=== PATIENT | male | born 2000 | race Caucasian/White ===

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

== ENCOUNTER → 2019-03-26 | Outpatient (CLI) | payer OTHER ==
[~2019-03-26] MED LIST changes: +ZANT150T40 PO; -ZANTTAB PO
--- NOTE | 2019-03-26 18:10 | REP ---
HISTORY: Acute shoulder pain. No trauma. COMPARISON: No priors. FINDINGS: Three views of the shoulder were performed. The acromioclavicular and glenohumeral relationships are within normal limits. There is no acute fracture or destructive osseous lesion. Electronically Signed by Papi Weinberg DO 03/29/2019 04:11 P
== END ==
LOC: M LRY 12:01
PROVIDERS: ATTEND Nurse Practitioner Family
DX: M25.512 Pain in left shoulder (principal)

== ENCOUNTER → 2019-05-29 | Outpatient (REF) | payer OTHER ==
[~2019-05-29] MED LIST changes: +FAMO40TA3 PO; -LAMO200T2 PO; +LAMO200T3 PO; +ROBA750T4 PO
[2019-05-29 20:14] LABS: APPEARANCE, URINE CLEAR (CLEAR); BACTERIA, URINE AUTO NEGATIVE (NEGATIVE); BILIRUBIN, URINE AUTO NEGATIVE (NEGATIVE); BLOOD, URINE BLOOD 3+ (NEGATIVE); COLOR, URINE YELLOW (YELLOW); GLUCOSE, URINE (UA) AUTO NEGATIVE (NEGATIVE); KETONE, URINE AUTO NEGATIVE (NEGATIVE); LEUKOCYTE ESTERASE, URINE AUTO NEGATIVE (NEGATIVE); MUCUS, URINE SMALL (NEGATIVE); NITRITE, URINE AUTO NEGATIVE (NEGATIVE); PROTEIN, URINE AUTO 1+ mg/dL (NEGATIVE); RBC, URINE AUTO 58 /HPF (0-3); SPECIFIC GRAVITY URINE AUTO 1.025 (1.002-1.035); SQUAMOUS EPITHELIAL CELL UR AU 0 /HPF (0-6); UROBILINOGEN, URINE AUTO 0.2 mg/dL (0.0-2.0); WBC, URINE AUTO 0 /HPF (0-3)
== END ==
LOC: M LAB REF 13:50
PROVIDERS: ATTEND Nurse Practitioner Family
DX: R30.0 Dysuria (principal)

== ENCOUNTER 2019-05-30 02:05 | Emergency (ER) | payer OTHER ==
[~2019-05-30] VITALS: Ht 182.9 cm; Wt 107.3 kg
[~2019-05-30 02:05] MED LIST changes: -FAMO40TA3 PO; -ROBA750T4 PO
[2019-05-30 02:06] VITALS: BP 158/69
[2019-05-30] MEDS ORDERED: FAMO40TA3 PO (02:11)
[2019-05-30] MEDS ORDERED: METHOCARBAMOL 1,000 MG/10 ML VIAL (J2800) IM ONE (05:00)
[2019-05-30] MEDS ORDERED: ROBA750T4 PO (05:05)
== END 2019-05-30 05:31 | disposition home or self-care (01) ==
LOC: M ED 02:05
DX: S39.012A Strain of muscle, fascia and tendon of lower back, initial encounter (principal); X50.3XXA Overexertion from repetitive movements, initial encounter; Y92.9 Unspecified place or not applicable; Y93.29 Activity, other involving ice and snow; Y99.9 Unspecified external cause status; K21.9 Gastro-esophageal reflux disease without esophagitis; F41.9 Anxiety disorder, unspecified; F32.9 Major depressive disorder, single episode, unspecified; Z79.899 Other long term (current) drug therapy
CPT/HCPCS: 81001; 96372; 99282; J2800

== ENCOUNTER → 2019-06-01 | Outpatient (REF) | payer OTHER ==
[~2019-06-01] MED LIST changes: +FAMO40TA3 PO; +ROBA750T4 PO
[2019-06-01 12:10] LABS: APPEARANCE, URINE TURBID (CLEAR); BACTERIA, URINE AUTO NEGATIVE (NEGATIVE); BILIRUBIN, URINE AUTO 2+ (NEGATIVE); BLOOD, URINE BLOOD 2+ (NEGATIVE); GLUCOSE, URINE (UA) AUTO NEGATIVE (NEGATIVE); KETONE, URINE AUTO TRACE mg/dL (NEGATIVE); LEUKOCYTE ESTERASE, URINE AUTO NEGATIVE (NEGATIVE); NITRITE, URINE AUTO NEGATIVE (NEGATIVE); PROTEIN, URINE AUTO 1+ mg/dL (NEGATIVE); RBC, URINE AUTO 0 /HPF (0-3); SQUAMOUS EPITHELIAL CELL UR AU 0 /HPF (0-6); UROBILINOGEN, URINE AUTO 0.2 mg/dL (0.0-2.0); WBC, URINE AUTO 0 /HPF (0-3)
[2019-06-01 12:14] LABS: COLOR, URINE YELLOW (YELLOW)
== END ==
LOC: M SFHCLERA 08:39
PROVIDERS: ATTEND Family Medicine
DX: R10.32 Left lower quadrant pain (principal)

== ENCOUNTER → 2019-06-08 | Outpatient (CLI) | payer OTHER ==
--- NOTE | 2019-06-08 13:03 | REP ---
Limited pelvic bladder sonography: History: Groin pain on the left. Findings: Visualized bladder mahoney are smooth and normal. No bladder mass lesion is seen. Emptying ureteral jets are confirmed from both ureters on color Doppler interrogation of the bladder lumen. No extra vesicle lesion is seen. Pre void bladder volume is calculated at 529 mL. Postvoid bladder residual is only 5 mL, 0.9%. Impression: Normal limited pelvic bladder sonography. Electronically Signed by Janusz Dominguez MD 06/08/2019 03:32 P
== END ==
LOC: M RAD 10:08
PROVIDERS: ATTEND Family Medicine
DX: R10.32 Left lower quadrant pain (principal)

== ENCOUNTER → 2020-10-25 | Outpatient (REF) | payer OTHER ==
[~2020-10-25] MED LIST changes: -ESCI20TA PO; +ESCI20TA16 PO; +PANT40TA29 PO; -PANT40TA3 PO
== END ==
LOC: M SFHCLERA 11:04
PROVIDERS: ATTEND Nurse Practitioner Family
DX: J02.9 Acute pharyngitis, unspecified (principal)

== ENCOUNTER 2022-07-30 10:38 | Emergency (ER) | payer OTHER ==
[~2022-07-30] VITALS: Ht 182.9 cm; Wt 121.3 kg
[2022-07-30] MEDS ORDERED: LOSA25TA13 PO (10:51)
[2022-07-30] MEDS ORDERED: LORA-674 PO (10:51)
[2022-07-30] MEDS ORDERED: OMEP40CA5 PO (10:51)
[2022-07-30] MEDS ORDERED: ACETAMINOPHEN 500 MG TAB PO ONE (12:35)
[2022-07-30 14:26] VITALS: BP 138/92
== END 2022-07-30 14:30 | disposition home or self-care (01) ==
LOC: M ED 10:38
DX: Z04.1 Encounter for examination and observation following transport accident (principal); M25.511 Pain in right shoulder; J45.909 Unspecified asthma, uncomplicated; Z79.899 Other long term (current) drug therapy

== ENCOUNTER → 2022-08-20 | Outpatient (RCR) | payer OTHER ==
[~2022-08-20] MED LIST changes: -DULE100A IN; +LORA-674 PO; +LOSA25TA13 PO; +MOME13HF8 IN; +MONT-5 PO; +OMEP40CA5 PO; -SING10TA32 PO
== END ==
LOC: M PT 13:07
PROVIDERS: ATTEND Orthopaedic Surgery
DX: M25.511 Pain in right shoulder (principal)

== ENCOUNTER 2022-09-17 09:28 | Outpatient (RCR) | payer OTHER | END 2022-09-20 | LOC: M PT 09:28 | PROVIDERS: ATTEND Orthopaedic Surgery | DX: M25.511 Pain in right shoulder (principal) ==

== ENCOUNTER 2022-10-01 09:32 | Outpatient (RCR) | payer OTHER | END 2022-10-20 | LOC: M PT 09:32 | PROVIDERS: ATTEND Orthopaedic Surgery | DX: M25.511 Pain in right shoulder (principal) ==

== ENCOUNTER → 2022-10-21 | Outpatient (CLI) | payer OTHER | LOC: M RAD 07:16 | PROVIDERS: ATTEND Orthopaedic Surgery | DX: M25.511 Pain in right shoulder (principal); M77.8 Other enthesopathies, not elsewhere classified ==

== ENCOUNTER 2022-10-30 12:24 | Outpatient (RCR) | payer OTHER | END 2022-11-20 | LOC: M PT 12:24 | PROVIDERS: ATTEND Orthopaedic Surgery | DX: M25.511 Pain in right shoulder (principal) ==

== ENCOUNTER → 2023-02-18 | Outpatient (REF) | payer OTHER | LOC: M SFHCLERA 16:59 | PROVIDERS: ATTEND Family Medicine | DX: R05.9 Cough, unspecified (principal) ==

== ENCOUNTER 2023-04-19 19:42 | Emergency (ER) | payer OTHER ==
[~2023-04-19] VITALS: Ht 182.9 cm; Wt 119.5 kg
[2023-04-19 19:42] VITALS: BP 134/81; TEMP 98.5; O2SAT 98
[~2023-04-19 19:42] MED LIST changes: +LORA-1041 PO; -LORA-674 PO
== END 2023-04-19 21:44 | disposition home or self-care (01) ==
LOC: M ED 19:42
DX: H92.01 Otalgia, right ear (principal); I10 Essential (primary) hypertension; G43.909 Migraine, unspecified, not intractable, without status migrainosus; J45.909 Unspecified asthma, uncomplicated; Z88.1 Allergy status to other antibiotic agents; Z79.811 Long term (current) use of aromatase inhibitors; Z79.83 Long term (current) use of bisphosphonates; Z79.899 Other long term (current) drug therapy

== ENCOUNTER → 2023-07-08 | Outpatient (REF) | LOC: M RAD 13:22 | PROVIDERS: ATTEND Internal Medicine | DX: M25.511 Pain in right shoulder (principal); M54.6 Pain in thoracic spine ==

== ENCOUNTER → 2024-03-02 | Outpatient (CLI) | payer OTHER ==
[2024-03-02 18:09] LABS: BASO # 0.1 10^3/uL (0.0-0.2); BASO % 0.7 % (0.0-1.0); EOS # 0.1 10^3/uL (0.0-0.5); EOS % 1.1 % (0.0-3.0); HEMATOCRIT 49.2 % (42.0-52.0); HEMOGLOBIN 17.3 g/dl (13.5-17.5); LYMPH # 2.9 10^3/uL (1.5-5.0); LYMPH % 28.2 % (24.0-44.0); MEAN CORPUSCULAR HEMOGLOBIN 30.3 pg (27.0-33.0); MEAN CORPUSCULAR HGB CONC 35.2 g/dl (32.0-36.5); MEAN CORPUSCULAR VOLUME 86.2 fl (80.0-96.0); MONO # 0.9 10^3/uL (0.0-0.8); MONO % 8.7 % (2.0-8.0); NEUTROPHILS # 6.1 10^3/uL (1.5-8.5); NEUTROPHILS % 60.8 % (36.0-66.0); PLATELET COUNT, AUTOMATED 296 10^3/uL (150-450); RED BLOOD COUNT 5.71 10^6/uL (4.30-6.10); WHITE BLOOD COUNT 10.1 10^3/uL (4.0-10.0)
[2024-03-02 18:27] LABS: TOTAL PROTEIN,RANDOM URINE 17.4 MG/DL (0.0-14.0)
[2024-03-02 18:28] LABS: ALBUMIN 4.4 G/DL (3.2-5.2); BLOOD UREA NITROGEN 10 MG/DL (9-23); CARBON DIOXIDE LEVEL 31 MMOL/L (20-31); CHLORIDE LEVEL 104 MMOL/L (98-107); CREATININE FOR GFR 0.84 MG/DL (0.70-1.30); GLOMERULAR FILTRATION RATE > 60.0 (>60); GLUCOSE, FASTING 87 MG/DL (60-100); POTASSIUM SERUM 4.6 MMOL/L (3.5-5.1); SODIUM LEVEL 140 MMOL/L (136-145)
[2024-03-02 18:32] LABS: CREATININE, URINE 49.5 MG/DL
[2024-03-02 18:33] LABS: MAU/CREAT RATIO 191.9 MCG/MG (0.0-30.0)
[2024-03-02 18:46] LABS: APPEARANCE, URINE CLEAR (CLEAR); BACTERIA, URINE AUTO NEGATIVE (NEGATIVE); BILIRUBIN, URINE AUTO NEGATIVE (NEGATIVE); BLOOD, URINE BLOOD NEGATIVE (NEGATIVE); COLOR, URINE YELLOW (YELLOW); GLUCOSE, URINE (UA) AUTO NEGATIVE (NEGATIVE); KETONE, URINE AUTO NEGATIVE (NEGATIVE); LEUKOCYTE ESTERASE, URINE AUTO NEGATIVE (NEGATIVE); NITRITE, URINE AUTO NEGATIVE (NEGATIVE); PROTEIN, URINE AUTO NEGATIVE (NEGATIVE); RBC, URINE AUTO 0 /HPF (0-3); SPECIFIC GRAVITY URINE AUTO 1.006 (1.002-1.035); SQUAMOUS EPITHELIAL CELL UR AU 0 /HPF (0-6); UROBILINOGEN, URINE AUTO 0.2 mg/dL (0.0-2.0); WBC, URINE AUTO 0 /HPF (0-3)
== END ==
LOC: M PLALAB 14:13
PROVIDERS: ATTEND Family Medicine
DX: N18.1 Chronic kidney disease, stage 1 (principal)

== ENCOUNTER → 2024-07-21 | Outpatient (CLI) | payer OTHER | LOC: M RAD 09:29 | PROVIDERS: ATTEND Allergy & Immunology Allergy | DX: J32.9 Chronic sinusitis, unspecified (principal) ==

== ENCOUNTER → 2024-10-18 | Outpatient (CLI) | payer OTHER ==
[2024-10-18 14:46] LABS: APPEARANCE, URINE CLEAR (CLEAR); BACTERIA, URINE AUTO NEGATIVE (NEGATIVE); BILIRUBIN, URINE AUTO NEGATIVE (NEGATIVE); BLOOD, URINE BLOOD NEGATIVE (NEGATIVE); COLOR, URINE YELLOW (YELLOW); GLUCOSE, URINE (UA) AUTO NEGATIVE (NEGATIVE); KETONE, URINE AUTO NEGATIVE (NEGATIVE); LEUKOCYTE ESTERASE, URINE AUTO NEGATIVE (NEGATIVE); NITRITE, URINE AUTO NEGATIVE (NEGATIVE); PROTEIN, URINE AUTO 2+ mg/dL (NEGATIVE); RBC, URINE AUTO 1 /HPF (0-3); SPECIFIC GRAVITY URINE AUTO 1.019 (1.002-1.035); SQUAMOUS EPITHELIAL CELL UR AU 0 /HPF (0-6); UROBILINOGEN, URINE AUTO 0.2 mg/dL (0.0-2.0); WBC, URINE AUTO 1 /HPF (0-3)
[2024-10-18 15:15] LABS: ALBUMIN 4.2 G/DL (3.2-5.2); BLOOD UREA NITROGEN 12 MG/DL (9-23); CALCIUM LEVEL 9.9 MG/DL (8.5-10.1); CARBON DIOXIDE LEVEL 30 MMOL/L (20-31); CHLORIDE LEVEL 101 MMOL/L (98-107); CREATININE FOR GFR 0.84 MG/DL (0.70-1.30); CREATININE, URINE 172.5 MG/DL; GLOMERULAR FILTRATION RATE > 90.0 (>60); GLUCOSE, FASTING 89 MG/DL (60-100); MAU/CREAT RATIO 178.5 MCG/MG (0.0-30.0); PHOSPHORUS LEVEL 2.9 MG/DL (2.5-4.9); POTASSIUM SERUM 4.4 MMOL/L (3.5-5.1); SODIUM LEVEL 141 MMOL/L (136-145)
== END ==
LOC: M LAB 13:51
PROVIDERS: ATTEND Family Medicine
DX: N18.1 Chronic kidney disease, stage 1 (principal)

== ENCOUNTER → 2025-02-17 | Outpatient (CLI) | payer OTHER | LOC: M RAD 12:52 | PROVIDERS: ATTEND Family Medicine | DX: I83.891 Varicose veins of right lower extremity with other complications (principal) ==